=== PATIENT | female | born 1950 | race Caucasian/White ===

== ENCOUNTER 2019-03-25 10:38 | Emergency (ER) | payer OTHER ==
[~2019-03-25] VITALS: Ht 157.5 cm; Wt 62.6 kg
[~2019-03-25 10:38] MED LIST: FIORICET 50-301 EACH PO
[2019-03-25] MEDS ORDERED: LOPID 600MG (10:49)
[2019-03-25] MEDS ORDERED: AVAPRO150 MG (10:49)
[2019-03-25] MEDS ORDERED: CALTRATE 600 +1 EACH (10:50)
[2019-03-25] MEDS ORDERED: CHOLECALCIFEROL (10:51)
== END 2019-03-25 21:22 | disposition home or self-care (01) ==
LOC: ER 10:38
DX: R10.32 Left lower quadrant pain (principal)

== ENCOUNTER 2019-03-28 09:46 | Emergency (ER) | payer OTHER ==
[~2019-03-28] VITALS: Ht 157.5 cm; Wt 62.6 kg
[~2019-03-28 09:46] MED LIST changes: +AVAPRO150 MG; +CALTRATE 600 +1 EACH; +CHOLECALCIFEROL; +LOPID 600MG
[2019-03-28] MEDS ORDERED: LOPID PO (10:11)
== END 2019-03-28 15:01 | disposition home or self-care (01) ==
LOC: ER 09:46
DX: K57.92 Diverticulitis of intestine, part unspecified, without perforation or abscess without bleeding (principal)